=== PATIENT | male | born 1955 | race African-American/Black ===

== ENCOUNTER 2017-09-21 09:28 | Emergency (ER) | payer SELFPAY ==
[~2017-09-21] VITALS: Ht 177.8 cm; Wt 87.0 kg
[~2017-09-21 09:28] MED LIST: CYCL5TAB PO; IBUP800T23 PO; Z.0.NO CURRENT MEDS
[2017-09-21 09:30] VITALS: BP 172/102; PULSE 75; RESP 12; TEMP 97.8; O2SAT 98
[2017-09-21] MEDS ORDERED: SODIUM CHLORIDE 0.9% FLUSH 10 ML FLUSH IV FLUSH PRN (09:45)
--- NOTE | 2017-09-21 09:45 | PD ---
HPI Chief Complaint: Abdominal Pain Time Seen by Provider: 09:40 Travel History International Travel<30 days: No Contact w/Intl Traveler<30days: No Traveled to known affect area: No History of Present Illness HPI Patient 62-year-old male presents emerged permit with epigastric pain occasionally rating down his abdomen, states been present on and off for the past few weeks, states that when he pushes on his belly and pushes it down the pain goes away and is able to bear throat. States been taking Mylanta, Tums, Rolaids at home with some relief. He states the pain is waxing and waning, moderate in severity, not associated with any nausea vomiting diarrhea or constipation. The patient is on chronic opiate pain medication for chronic neck pain. [facility] Social History Alcohol Use: Yes Tobacco Use: Yes Allergies-Medications (Allergen,Severity, Reaction): Coded Allergies: No Known Allergies (Verified Adverse Reaction, Unknown, 09/21/17) Reported Meds & Prescriptions Reported Meds & Active Scripts Active Protonix (Pantoprazole Sodium) 40 Mg Tab 40 Mg PO DAILY Ibuprofen 800 Mg Tab 800 Mg PO Q8 PRN Flexeril (Cyclobenzaprine HCl) 5 Mg Tab 1 Tab PO Q8 PRN Reported No Current Meds (Miscellaneous Medication) Misc Review of Systems Except as stated in HPI: all other systems reviewed are Neg Physical Exam Narrative GENERAL: Well-developed well-nourished, appears comfortable in no obvious distress SKIN: Focused skin assessment warm/dry. HEAD: Atraumatic. Normocephalic. EYES: Pupils equal and round. No scleral icterus. No injection or drainage. ENT: No nasal bleeding or discharge. Mucous membranes pink and moist. NECK: Trachea midline. No JVD. CARDIOVASCULAR: Regular rate and rhythm. No murmur appreciated. RESPIRATORY: No accessory muscle use. Clear to auscultation. Breath sounds equal bilaterally. GASTROINTESTINAL: Abdomen soft, non-tender, nondistended. Hepatic and splenic margins not palpable. No rebound no percussive tenderness, MUSCULOSKELETAL: No obvious deformities. No clubbing. No cyanosis. No edema. NEUROLOGICAL: Awake and alert. No obvious cranial nerve deficits. Motor grossly within normal limits. Normal speech. PSYCHIATRIC: Appropriate mood and affect; insight and judgment normal. Data Data Last Documented VS Vital Signs Date Time Temp Pulse Resp B/P (MAP) Pulse Ox O2 Delivery O2 Flow Rate FiO2 12/24/17 12:55 09/21/17 09:48 96 Room Air 09/21/17 09:30 97.8 75 12 Orders Orders Complete Blood Count With Diff (09/21/17 09:37) Comprehensive Metabolic Panel (09/21/17 09:37) Lipase (09/21/17 09:37) Urinalysis - C+S If Indicated (09/21/17 09:37) Iv Access Insert/Monitor (09/21/17 09:37) Ecg Monitoring (09/21/17 09:37) Oximetry (09/21/17 09:37) Sodium Chloride 0.9% Flush (Ns Flush) (09/21/17 09:45) Electrocardiogram (09/21/17 09:37) Troponin I (09/21/17 09:37) Dicyclomine (Bentyl) (09/21/17 10:00) Ct Abd/Pel W Iv Contrast(Rout) (09/21/17 ) Iohexol 350 Inj (Omnipaque 350 Inj) (09/21/17 12:16) Ed Discharge Order (09/21/17 12:42) Labs Laboratory Tests Test 09/21/17 09:55 09/21/17 11:50 White Blood Count 6.5 TH/MM3 Red Blood Count 5.05 MIL/MM3 Hemoglobin 14.6 GM/DL Hematocrit 43.3 % Mean Corpuscular Volume 85.6 FL Mean Corpuscular Hemoglobin 28.9 PG Mean Corpuscular Hemoglobin Concent 33.8 % Red Cell Distribution Width 13.0 % Platelet Count 209 TH/MM3 Mean Platelet Volume 7.7 FL Neutrophils (%) (Auto) 69.3 % Lymphocytes (%) (Auto) 23.1 % Monocytes (%) (Auto) 5.6 % Eosinophils (%) (Auto) 1.2 % Basophils (%) (Auto) 0.8 % Neutrophils # (Auto) 4.5 TH/MM3 Lymphocytes # (Auto) 1.5 TH/MM3 Monocytes # (Auto) 0.4 TH/MM3 Eosinophils # (Auto) 0.1 TH/MM3 Basophils # (Auto) 0.1 TH/MM3 CBC Comment DIFF FINAL Differential Comment Blood Urea Nitrogen 9 MG/DL Creatinine 1.08 MG/DL Random Glucose 146 MG/DL Total Protein 7.1 GM/DL Albumin 3.2 GM/DL Calcium Level 8.8 MG/DL Alkaline Phosphatase 94 U/L Aspartate Amino Transf (AST/SGOT) 38 U/L Alanine Aminotransferase (ALT/SGPT) 94 U/L Total Bilirubin 0.8 MG/DL Sodium Level 141 MEQ/L Potassium Level 3.6 MEQ/L Chloride Level 108 MEQ/L Carbon Dioxide Level 25.8 MEQ/L Anion Gap 7 MEQ/L Estimat Glomerular Filtration Rate 84 ML/MIN Troponin I LESS THAN 0.02 NG/ML Lipase 220 U/L Urine Color YELLOW Urine Turbidity CLEAR Urine pH 6.0 Urine Specific [place] 1.014 Urine Protein NEG mg/dL Urine Glucose (UA) NEG mg/dL Urine Ketones NEG mg/dL Urine Occult Blood NEG Urine Nitrite NEG Urine Bilirubin NEG Urine Urobilinogen LESS THAN 2.0 MG/DL Urine Leukocyte Esterase NEG Urine RBC LESS THAN 1 /hpf Urine WBC LESS THAN 1 /hpf Urine Mucus FEW /lpf Microscopic Urinalysis Comment CULT NOT INDICATED MDM Medical Decision Making Medical Screen Exam Complete: Yes Emergency Medical Condition: Yes Differential Diagnosis Epigastric pain, gastritis, gastric enteritis, peptic ulcer disease, pancreatitis, cholecystitis, acute abdomen highly unlikely, constipation. Narrative Course Patient roomed in emergency department, appears comfortable in [place] distress, basic labs reassuring, still states that he is having some aching discomfort but appears quite comfortable. CAT scan ordered given his age, showing no acute abnormality patient is stable for discharge. Discussed symptomatic management follow-up to food service manager and return to ED criteria. Diagnosis Primary Impression: Epigastric abdominal pain Referrals: Adis Vasquez MD Additional Instructions: Try some Tums as needed, recommend following up with her primary care physician and food service manager for an endoscopy and colonoscopy. Med/Other Pt SpecificInfo: Prescription(s) given Scripts Pantoprazole (Protonix) 40 Mg Tab 40 MG PO DAILY for Reflux, #30 TAB 0 Refills Prov: Дмитрий Arroyo MD 09/21/17 Disposition: 01 DISCHARGE HOME Condition: Stable Дмитрий Arroyo MD Sep 21, 2017 09:45
[2017-09-21 09:48] VITALS: O2SAT 96
[2017-09-21] MEDS ORDERED: DICYCLOMINE HCL 10 MG CAP PO ONE (10:00)
[2017-09-21 10:03] LABS: AUTOMATED NEUTROPHIL # 4.5 TH/MM3 (1.8-7.7); BASOPHIL # 0.1 TH/MM3 (0-0.2); BASOPHIL % 0.8 % (0.0-2.0); EOSINOPHIL # 0.1 TH/MM3 (0-0.4); EOSINOPHIL % 1.2 % (0.0-4.0); HEMATOCRIT 43.3 % (39.0-51.0); HEMOGLOBIN 14.6 GM/DL (13.0-17.0); LYMPH % 23.1 % (9.0-44.0); LYMPHOCYTE # 1.5 TH/MM3 (1.0-4.8); MEAN CELL VOLUME 85.6 FL (80.0-100.0); MEAN CORPUSCULAR HEMOGLOBIN 28.9 PG (27.0-34.0); MEAN CORPUSCULAR HGB CONC 33.8 % (32.0-36.0); MEAN PLATELET VOLUME 7.7 FL (7.0-11.0); MONO % 5.6 % (0.0-8.0); MONOCYTE # 0.4 TH/MM3 (0-0.9); NEUT % 69.3 % (16.0-70.0); PLATELET COUNT 209 TH/MM3 (150-450); RED BLOOD COUNT 5.05 MIL/MM3 (4.50-5.90); WHITE BLOOD COUNT 6.5 TH/MM3 (4.0-11.0)
[2017-09-21 10:19] LABS: ALBUMIN 3.2 GM/DL (3.4-5.0); ALT (GPT) 94 U/L (12-78); AST (GOT) 38 U/L (15-37); BICARBONATE 25.8 MEQ/L (21.0-32.0); BLOOD UREA NITROGEN 9 MG/DL (7-18); CALCIUM 8.8 MG/DL (8.5-10.1); CHLORIDE 108 MEQ/L (98-107); CREATININE 1.08 MG/DL (0.60-1.30); GLOMERULAR FILTRATION RATE 84 ML/MIN (>89); GLUCOSE,RANDOM 146 MG/DL (74-106); LIPASE 220 U/L (73-393); SODIUM (NA) 141 MEQ/L (136-145)
[2017-09-21 10:23] LABS: ALKALINE PHOSPHATASE 94 U/L (45-117); TOTAL BILIRUBIN ADULT 0.8 MG/DL (0.2-1.0); TOTAL PROTEIN 7.1 GM/DL (6.4-8.2); TROPONIN I LESS THAN 0.02 NG/ML (0.02-0.05)
[2017-09-21 12:03] LABS: BILIRUBIN, URINE NEG (NEG); BLOOD, URINE NEG (NEG); GLUCOSE,URINE NEG (NEG); KETONE, URINE NEG (NEG); MUCUS URINE FEW /lpf (OCC); NITRITE,URINE NEG (NEG); URINE COLOR YELLOW (YELLW/STRAW); URINE LEUKOCYTE ESTERASE NEG (NEG)
[2017-09-21] MEDS ORDERED: IOHEXOL 350 MG/ML 10 ML VIAL (for RAD DIAG) IVCONTRAST ONE (12:16)
--- NOTE | 2017-09-21 12:39 | RADRPT ---
EXAM DATE/TIME: 09/21/2017 12:15 [place] COMPARISON: No previous studies available for comparison. INDICATIONS : Epigastric pain for four days. IV CONTRAST: 87 cc Omnipaque 350 (iohexol) IV ORAL CONTRAST: No oral contrast ingested. RADIATION DOSE: 10.90 CTDIvol (mGy) MEDICAL HISTORY : None SURGICAL HISTORY : None. ENCOUNTER: Initial ACUITY: 4 - 6 days PAIN SCALE: 6/10 LOCATION: epigastric abdomen TECHNIQUE: Volumetric scanning of the abdomen and pelvis was performed. Using automated exposure control and ad justment of the mA and/or kV according to patient size, radiation dose was kept as low as reasonably achievable to obtain optimal diagnostic quality images. DICOM format image data is available electro nically for review and comparison. FINDINGS: LOWER LUNGS: The visualized lower lungs are clear. LIVER: Homogeneous density without lesion. There is no dilation of the biliary tree. No calcified gallston es. SPLEEN: Normal size without lesion. PANCREAS: Within normal limits. KIDNEYS: Normal in size and shape. There is no mass, stone or hydronephrosis. ADRENAL GLANDS: Within normal limits. VASCULAR: There is no aortic aneurysm. BOWEL/MESENTERY: The stomach, small bowel, and colon demonstrate no acute abnormality. There is no free intraperitone al air or fluid. ABDOMINAL WALL: Within normal limits. RETROPERITONEUM: There is no lymphadenopathy. BLADDER: No wall thickening or mass. REPRODUCTIVE: Within normal limits. INGUINAL: There is no lymphadenopathy or hernia. MUSCULOSKELETAL: Within normal limits for patient age. CONCLUSION: Negative for an acute process Elvis Molina MD FACR on September 21, 2017 at 12:36 Board Certified Radiologist. This report was verified electronically.
[2017-09-21] MEDS ORDERED: PROT40TA PO (12:43)
--- NOTE | 2017-09-21 18:17 | EKG ---
Date Performed: 09/21/2017 Time Performed: 09:56:52 PTAGE: 62 years EKG: Sinus rhythm MODERATE VOLTAGE CRITERIA FOR LVH, CONSIDER NORMAL VARIANT POSSIBLE SEPTAL MYOCARDIAL INFARCTION ABN ORMAL ECG NO PREVIOUS TRACING DOCTOR: Jessica Suarez Interpretating Date/Time 09/21/2017 18:17:30
== END 2017-09-21 12:56 | disposition home or self-care (01) ==
LOC: NEPE 09:28
DX: R10.13 Epigastric pain (principal); R94.31 Abnormal electrocardiogram [ECG] [EKG]; M54.2 Cervicalgia; G89.29 Other chronic pain; Z72.0 Tobacco use
CPT/HCPCS: 74177; 80053; 81001; 83690; 84484; 85025; 93005; 99285; Q9967